=== PATIENT | male | born 1975 | race African-American/Black ===

== ENCOUNTER 2019-08-20 00:08 | Inpatient (IN) | payer MEDICARE ==
[~2019-08-20] VITALS: Ht 177.8 cm; Wt 113.4 kg
[2019-08-20] MEDS ORDERED: ONDANSETRON HCL 4MG/2ML INJ IV STA (00:28)
[2019-08-20] MEDS ORDERED: ASPIRIN 81MG TABLET PO ONE (00:30)
[2019-08-20 00:58] LABS: HEMATOCRIT. 41.1 % (42.0-52.0); HEMOGLOBIN. 13.3 g/dL (14.0-18.0); MEAN CORPUSCULAR HEMOGLOBIN 24.6 pg (28.0-32.0); MEAN CORPUSCULAR VOLUME 76.2 fL (80.0-94.0); MEAN PLATELET VOLUME 8.6 fl (7.4-10.4); PLATELET 245 x1000/uL (130-400); RED CELL DISTRIBUTION WIDTH 18.3 % (11.6-14.6)
[2019-08-20 01:00] LABS: CHLORIDE 98 mEq/L (98-107)
[2019-08-20 01:04] LABS: ETHANOL BLOOD < 10 mg/dL
[2019-08-20 02:12] LABS: ATYPICAL LYMPHOCYTES 3; PLATELET ESTIMATE NORMAL
[2019-08-20] MEDS ORDERED: SODIUM CHLORIDE 0.9% 1,000 ML IV ONE (02:30)
[2019-08-20] MEDS ORDERED: CEFTRIAXONE 1 G PREMIX 50 ML IV NR (03:45)
[2019-08-20] MEDS ORDERED: PROPOFOL 10MG/ML 100ML 100 ML IV SCH (04:45)
[2019-08-20] MEDS ORDERED: DILTIAZEM HCL 5MG/ML 5ML VIAL IV ONE (04:45)
[2019-08-20] MEDS ORDERED: ONDANSETRON HCL 4MG/2ML INJ IV PRN (09:00)
[2019-08-20] MEDS ORDERED: HYDROCODONE/ACETAMINOPHEN 5/325MG TABLET PO PRN (09:00)
[2019-08-20] MEDS: SODIUM CHLORIDE 0.45% 1,000 ML IV SCH (11:30)
[2019-08-20 15:56] VITALS: BP 109/73
[2019-08-20 16:00] VITALS: BP 109/73
[2019-08-20] MEDS: METOPROLOL TARTRATE 25MG TABLET PO SCH ×2 (16:15→21:00)
[2019-08-20] MEDS ORDERED: DILTIAZEM HCL 5MG/ML 5ML VIAL IV PRN (16:16)
[2019-08-20] MEDS ORDERED: CARV25TA47 PO (16:20)
[2019-08-20] MEDS ORDERED: BUME2TAB8 PO (16:20)
[2019-08-20] MEDS ORDERED: PRED1TAB PO (16:27)
[2019-08-20] MEDS ORDERED: SITA50TA3 PO (16:27)
[2019-08-20] MEDS ORDERED: ROSU40TA PO (16:27)
[2019-08-20] MEDS ORDERED: IVAB5TAB PO (16:27)
[2019-08-20] MEDS ORDERED: HYDR-4135 PO (16:27)
[2019-08-20] MEDS ORDERED: ASPI-1497 PO (16:27)
[2019-08-20] MEDS ORDERED: CHOL200010 PO (16:27)
[2019-08-20] MEDS ORDERED: ALLO100T PO (16:27)
[2019-08-20] MEDS ORDERED: APIX5TAB PO (16:27)
[2019-08-20] MEDS ORDERED: OMEP20TA2 PO (16:27)
[2019-08-20] MEDS ORDERED: POTA99TA4 PO (16:27)
[2019-08-20] MEDS ORDERED: ICOS1CAP PO (16:27)
[2019-08-20] MEDS ORDERED: EPLE25TA10 PO (16:27)
[2019-08-20] MEDS ORDERED: ISOS10TA2 PO (16:27)
[2019-08-20] MEDS ORDERED: MELA1TAB25 SL (16:27)
[2019-08-20 20:00] VITALS: BP 98/63
[2019-08-20] MEDS: AMIODARONE HCL 200 MG TABLET PO SCH (21:22)
[2019-08-21] VITALS: BP 103/59
[2019-08-21 04:00] VITALS: BP 97/67
[2019-08-21 07:22] LABS: CHLORIDE 105 mEq/L (98-107)
[2019-08-21 07:33] LABS: LDL CHOLESTEROL 47 mg/dL (5-100)
[2019-08-21 07:34] LABS: HDL CHOLESTEROL 31 mg/dL (40-59)
[2019-08-21 07:36] LABS: HEMATOCRIT. 38.1 % (42.0-52.0); HEMOGLOBIN. 12.5 g/dL (14.0-18.0); MEAN CORPUSCULAR HEMOGLOBIN 25.1 pg (28.0-32.0); MEAN CORPUSCULAR VOLUME 76.7 fL (80.0-94.0); MEAN PLATELET VOLUME 9.2 fl (7.4-10.4); PLATELET 227 x1000/uL (130-400); RED BLOOD CELL COUNT 4.97 mill/uL (4.7-6.1); RED CELL DISTRIBUTION WIDTH 17.9 % (11.6-14.6)
[2019-08-21 08:00] VITALS: BP 103/73
[2019-08-21] MEDS: METOPROLOL TARTRATE 25MG TABLET PO SCH ×2 (08:09→21:11)
[2019-08-21] MEDS: APIXABAN 5 MG TABLET PO SCH ×2 (08:13→18:11)
[2019-08-21] MEDS: AMIODARONE HCL 200 MG TABLET PO SCH ×3 (08:13→18:10)
[2019-08-21] MEDS ORDERED: APIXABAN 5 MG TABLET PO SCH (09:00)
[2019-08-21] MEDS: SODIUM CHLORIDE 0.45% 1,000 ML IV SCH ×2 (12:30)
[2019-08-21 12:46] VITALS: BP 92/71
[2019-08-21 12:56] LABS: PLATELET ESTIMATE NORMAL
[2019-08-21] MEDS ORDERED: PREDNISONE 1MG TABLET PO SCH (13:45)
[2019-08-21] MEDS ORDERED: EPLERENONE 25 MG PO SCH (13:45)
[2019-08-21] MEDS: PREDNISONE 20MG TABLET PO SCH (15:16)
[2019-08-21] MEDS: ALLOPURINOL 100 MG TABLET PO SCH (15:16)
[2019-08-21 16:10] VITALS: BP 108/77
[2019-08-21] MEDS ORDERED: ICOSAPENT ETHYL PO SCH (17:00)
[2019-08-21 20:00] VITALS: BP 129/75
[2019-08-22] VITALS: BP 130/71
[2019-08-22 04:00] VITALS: BP 105/57
[2019-08-22 08:02] VITALS: BP 98/73
[2019-08-22] MEDS ORDERED: AMI2 PO (08:29)
[2019-08-22] MEDS: APIXABAN 5 MG TABLET PO SCH (08:50)
[2019-08-22] MEDS: PREDNISONE 20MG TABLET PO SCH (08:50)
[2019-08-22] MEDS: ALLOPURINOL 100 MG TABLET PO SCH (08:50)
[2019-08-22] MEDS: METOPROLOL TARTRATE 25MG TABLET PO SCH (08:51)
[2019-08-22] MEDS: AMIODARONE HCL 200 MG TABLET PO SCH ×2 (08:51→13:27)
[2019-08-22] MEDS ORDERED: IVABRADINE HCL 5 MG PO SCH (09:00)
[2019-08-22 11:36] LABS: CHLORIDE 103 mEq/L (98-107)
[2019-08-22 11:39] LABS: HEMOGLOBIN 12.5 g/dL (14.0-18.0); MEAN CORPUSCULAR HEMOGLOBIN 24.7 pg (28.0-32.0); MEAN CORPUSCULAR VOLUME 77.3 fL (80.0-94.0); PLATELET 237 x1000/uL (130-400); RED BLOOD CELL COUNT 5.05 mill/uL (4.7-6.1); RED CELL DISTRIBUTION WIDTH 18.5 % (11.6-14.6)
[2019-08-22 11:52] VITALS: BP 101/71
[2019-08-22 12:24] VITALS: BP 118/80
== END 2019-08-22 15:55 | disposition home or self-care (01) | DRG 309 ==
LOC: ER 02:00 → 6WST 02:36 → EDBEDREQ 02:42 → EDBEDREQSVC 02:42 → EDBEDREQTM 02:42 → EDBEDREQSVC 10:13 → ENRESERV 14:59
PROVIDERS: ADMIT Family Medicine; ATTEND Family Medicine
PROC: 4B02XTZ Measurement of Cardiac Defibrillator, External Approach (ICD-10-PCS; principal; 2019-08-20)
DX: I48.92 Unspecified atrial flutter (principal); I13.0 Hypertensive heart and chronic kidney disease with heart failure and stage 1 through stage 4 chronic kidney disease, or unspecified chronic kidney disease; I50.22 Chronic systolic (congestive) heart failure; I42.9 Cardiomyopathy, unspecified; I48.91 Unspecified atrial fibrillation; N18.3 Chronic kidney disease, stage 3 (moderate); E11.22 Type 2 diabetes mellitus with diabetic chronic kidney disease; D72.829 Elevated white blood cell count, unspecified; I95.9 Hypotension, unspecified; E66.01 Morbid (severe) obesity due to excess calories; I25.2 Old myocardial infarction; Z79.01 Long term (current) use of anticoagulants; Z95.810 Presence of automatic (implantable) cardiac defibrillator; Z68.35 Body mass index [BMI] 35.0-35.9, adult; Z88.8 Allergy status to other drugs, medicaments and biological substances
CPT/HCPCS: 36415; 71045; 76770; 80053; 80061; 80320; 82550; 83605; 83880; 84145; 84484; 85025; 85027; 93005; 93306; 99285; J0696; J2405; J3490; J7030; J7512; G0480